=== PATIENT | female | born 1990 | race Caucasian/White ===

== ENCOUNTER 2018-07-05 14:57 | Outpatient (CLI) | payer OTHER ==
[~2018-07-05] VITALS: Ht 172.7 cm; Wt 68.2 kg
[~2018-07-05 14:57] MED LIST: IBUP-1222 PO
[2018-07-05] MEDS ORDERED: TERBUTALINE 1 MG/ML, 1ML SQ ONE (15:30)
[2018-07-05] MEDS ORDERED: TERBUTALINE 1 MG/ML, 1ML ONE (16:09)
== END 2018-07-05 18:05 | disposition home or self-care (01) ==
LOC: LDOP 14:57
PROVIDERS: ATTEND Obstetrics & Gynecology
DX: O26.93 Pregnancy related conditions, unspecified, third trimester (principal); Z3A.38 38 weeks gestation of pregnancy
CPT/HCPCS: 59025; 59412; 99211; J3105; G0463

== ENCOUNTER 2018-07-17 22:21 | Inpatient (IN) | payer OTHER ==
[~2018-07-17] VITALS: Ht 172.7 cm; Wt 64.5 kg
[2018-07-17] MEDS ORDERED: LACTATED RINGERS 1,000 ML IV SCH ×2 (22:57→23:00)
[2018-07-17] MEDS ORDERED: OXYTOCIN 30U/ 0.9% NaCL 500ML 500 ML IV SCH (22:57)
[2018-07-17] MEDS ORDERED: METOCLOPRAMIDE 5 MG/ML, 2ML IV ONE (23:00)
[2018-07-17] MEDS ORDERED: SODIUM CITRATE/CITRIC ACID 30 ML UDC PO ONE (23:00)
[2018-07-17] MEDS ORDERED: LACTATED RINGERS 1,000 ML IVBOLUS ONE (23:00)
[2018-07-17] MEDS ORDERED: METOCLOPRAMIDE 5 MG/ML, 2ML ONE (23:10)
[2018-07-17] MEDS ORDERED: NEWBORN KIT ONE (23:10)
[2018-07-17] MEDS ORDERED: OXYTOCIN 30U/ 0.9% NaCL 500ML 500 ML ONE (23:10)
[2018-07-17] MEDS ORDERED: SODIUM CITRATE/CITRIC ACID 30 ML UDC ONE (23:10)
[2018-07-17] MEDS ORDERED: ONDANSETRON 2MG/ML, 2ML ONE (23:22)
[2018-07-17] MEDS ORDERED: CEFAZOLIN 1,000 MG ONE (23:22)
[2018-07-17] MEDS ORDERED: OXYTOCIN 10 UNITS/ML, 1ML ONE (23:22)
[2018-07-17] MEDS ORDERED: HYDROmorphone 2 MG/ML, 1ML ONE (23:23)
[2018-07-17] MEDS ORDERED: FENTANYL PF 100 MCG/2ML ONE (23:23)
[2018-07-17] MEDS ORDERED: SODIUM CHLORIDE 0.9% PF 10ML ONE ×2 (23:25)
[2018-07-17 23:28] VITALS: BP 103/58
[2018-07-17 23:35] LABS: BASOPHILS # (AUTO) 0.09 x10^3/uL (0-0.1); BASOPHILS % (AUTO) 1 % (0-1); EOSINOPHILS # (AUTO) 0.11 x10^3/uL (0-0.4); EOSINOPHILS % (AUTO) 1 % (1-7); LYMPHOCYTES # (AUTO) 1.86 x10^3/uL (1-3.4); LYMPHOCYTES % (AUTO) 14 % (22-44); MD NO; MEAN CORPUSCULAR HEMOGLOBIN 28.5 pg (27.0-34.8); MEAN CORPUSCULAR HGB CONC 33.8 g/dL (32.4-35.8); MEAN CORPUSCULAR VOLUME 84.3 fL (80-100); MONOCYTES # (AUTO) 0.64 x10^3/uL (0.2-0.8); MONOCYTES % (AUTO) 5 % (2-9); NEUTROPHILS # (AUTO) 10.18 x10^3/uL (1.8-6.8); NEUTROPHILS % (AUTO) 79 % (42-75); PLATELET COUNT 191 x10^3/uL (130-400); RED BLOOD COUNT 3.95 x10^6/uL (3.82-5.3); RED CELL DISTRIBUTION WIDTH 13.6 % (9.6-15.2)
[2018-07-18] MEDS: LACTATED RINGERS 1,000 ML IV SCH ×6 (01:04→21:04)
[2018-07-18] MEDS ORDERED: KETOROLAC 30 MG/1 ML ONE (01:08)
[2018-07-18] MEDS: OXYTOCIN 30U/ 0.9% NaCL 500ML 500 ML IV SCH ×3 (01:18→21:04)
[2018-07-18] MEDS ORDERED: OXYcodone/APAP 5/325MG TABLET PO PRN ×2 (01:30)
[2018-07-18] MEDS ORDERED: METOCLOPRAMIDE 5 MG/ML, 2ML IV PRN (01:30)
[2018-07-18] MEDS ORDERED: GLYCERIN ADULT SUPP PR PRN (01:30)
[2018-07-18] MEDS ORDERED: METHYLERGONOVINE 0.2 MG/ML IM PRN (01:30)
[2018-07-18] MEDS ORDERED: ONDANSETRON 2MG/ML, 2ML IV PRN (01:30)
[2018-07-18] MEDS ORDERED: IBUPROFEN 600 MG TABLET PO PRN (01:30)
[2018-07-18] MEDS ORDERED: ACETAMINOPHEN 325 MG TABLET PO PRN (01:30)
[2018-07-18] MEDS ORDERED: CARBOPROST TROMETHAMINE 250 MCG/ML, 1ML IM PRN (01:30)
[2018-07-18] MEDS ORDERED: MISOPROSTOL 200 MCG TABLET PR PRN (01:30)
[2018-07-18] MEDS ORDERED: BISACODYL 10 MG SUPP PR PRN (01:30)
[2018-07-18] MEDS ORDERED: morphine SULFATE 10 MG/ML, 1ML IVPush PRN (01:30)
[2018-07-18] MEDS: KETOROLAC 30 MG/1 ML IV SCH ×4 (01:46→20:41)
[2018-07-18 02:20] VITALS: BP 102/66
[2018-07-18 06:15] VITALS: BP 105/69
[2018-07-18 08:00] VITALS: BP 97/59
[2018-07-18] MEDS: PRENATAL VIT/IRON/FA 1 EACH TABLET PO SCH (09:00)
[2018-07-18 11:18] LABS: BASOPHILS # (AUTO) 0.02 x10^3/uL (0-0.1); BASOPHILS % (AUTO) 0 % (0-1); EOSINOPHILS # (AUTO) 0.14 x10^3/uL (0-0.4); EOSINOPHILS % (AUTO) 1 % (1-7); LYMPHOCYTES % (AUTO) 15 % (22-44); MD NO; MEAN CORPUSCULAR HEMOGLOBIN 28.6 pg (27.0-34.8); MEAN CORPUSCULAR HGB CONC 33.7 g/dL (32.4-35.8); MEAN CORPUSCULAR VOLUME 84.7 fL (80-100); MEAN PLATELET VOLUME 9.4 fL (7.4-10.4); MONOCYTES # (AUTO) 0.44 x10^3/uL (0.2-0.8); MONOCYTES % (AUTO) 4 % (2-9); NEUTROPHILS # (AUTO) 9.41 x10^3/uL (1.8-6.8); NEUTROPHILS % (AUTO) 80 % (42-75); PLATELET COUNT 194 x10^3/uL (130-400); RED BLOOD COUNT 3.87 x10^6/uL (3.82-5.3); RED CELL DISTRIBUTION WIDTH 13.9 % (9.6-15.2)
[2018-07-18 12:00] VITALS: BP 95/60
[2018-07-18] MEDS: DOCUSATE 100 MG CAPSULE PO PRN (14:50)
[2018-07-18 16:45] VITALS: BP 98/65
[2018-07-18 20:20] VITALS: BP 98/66
[2018-07-19] MEDS: LACTATED RINGERS 1,000 ML IV SCH ×3 (01:04→09:04)
[2018-07-19] MEDS: DOCUSATE 100 MG CAPSULE PO PRN (02:49)
[2018-07-19] MEDS: KETOROLAC 30 MG/1 ML IV SCH ×3 (02:49→14:30)
[2018-07-19] MEDS: OXYTOCIN 30U/ 0.9% NaCL 500ML 500 ML IV SCH (07:04)
[2018-07-19 07:10] VITALS: BP 95/62
[2018-07-19] MEDS: PRENATAL VIT/IRON/FA 1 EACH TABLET PO SCH (09:16)
[2018-07-19] MEDS ORDERED: OXYC-302 PO (09:56)
== END 2018-07-19 15:54 | disposition home or self-care (01) | DRG 787 ==
LOC: LDOP 22:21 → LDIP 23:01 → 2NW 07-18 02:08
PROVIDERS: ADMIT Obstetrics & Gynecology; ATTEND Obstetrics & Gynecology
PROC: 10D00Z1 Extraction of Products of Conception, Low, Open Approach (ICD-10-PCS; principal; 2018-07-18)
DX: O32.1XX0 Maternal care for breech presentation, not applicable or unspecified (principal); O99.354 Diseases of the nervous system complicating childbirth; J45.909 Unspecified asthma, uncomplicated; O99.52 Diseases of the respiratory system complicating childbirth; G43.909 Migraine, unspecified, not intractable, without status migrainosus; Z3A.40 40 weeks gestation of pregnancy; Z37.0 Single live birth; Z90.49 Acquired absence of other specified parts of digestive tract; Z88.8 Allergy status to other drugs, medicaments and biological substances
CPT/HCPCS: 36415; 85025; 86900; G0378; J0690; J1170; J1885; J2405; J3010; J2590; J2765; J7120

== ENCOUNTER 2019-08-08 10:04 | Day surgery (SDC) | payer OTHER ==
[~2019-08-08] VITALS: Ht 175.3 cm; Wt 58.1 kg
[~2019-08-08 10:04] MED LIST changes: +OXYC-302 PO
[2019-08-08] MEDS ORDERED: LACTATED RINGERS 1,000 ML IV SCH (10:43)
[2019-08-08 10:50] VITALS: BP 98/64
[2019-08-08] MEDS ORDERED: PRENATAL (10:50)
[2019-08-08] MEDS ORDERED: MISOPROSTOL 200 MCG TABLET ONE (11:06)
[2019-08-08] MEDS ORDERED: METHYLERGONOVINE 0.2 MG/ML IM ONE (11:06)
[2019-08-08] MEDS ORDERED: SILVER NITRATE STICK TP ONE (11:06)
[2019-08-08] MEDS ORDERED: OXYTOCIN 10 UNITS/ML, 1ML ONE (11:06)
[2019-08-08] MEDS ORDERED: ACETAMINOPHEN 500 MG TABLET PO ONE (11:30)
[2019-08-08] MEDS ORDERED: SCOPOLAMINE PATCH, 1.5MG PATCH.TD72 TD ONE (11:30)
[2019-08-08] MEDS ORDERED: DIAZEPAM 5 MG TABLET PO ONE (11:30)
[2019-08-08 11:47] LABS: BASOPHILS # (AUTO) 0.02 x10^3/uL (0-0.1); BASOPHILS % (AUTO) 0 % (0-1); EOSINOPHILS # (AUTO) 0.06 x10^3/uL (0-0.4); EOSINOPHILS % (AUTO) 1 % (1-7); LYMPHOCYTES # (AUTO) 1.94 x10^3/uL (1-3.4); LYMPHOCYTES % (AUTO) 35 % (22-44); MD NO; MEAN CORPUSCULAR HEMOGLOBIN 29.8 pg (27.0-34.8); MEAN CORPUSCULAR HGB CONC 33.2 g/dL (32.4-35.8); MEAN CORPUSCULAR VOLUME 89.8 fL (80-100); MEAN PLATELET VOLUME 9.1 fL (7.4-10.4); MONOCYTES % (AUTO) 7 % (2-9); NEUTROPHILS # (AUTO) 3.16 x10^3/uL (1.8-6.8); NEUTROPHILS % (AUTO) 57 % (42-75); PLATELET COUNT 211 x10^3/uL (130-400); RED BLOOD COUNT 5.04 x10^6/uL (3.82-5.3); RED CELL DISTRIBUTION WIDTH 12.9 % (9.6-15.2)
[2019-08-08] MEDS ORDERED: FENTANYL PF 100 MCG/2ML ONE ×2 (11:47→13:18)
[2019-08-08] MEDS ORDERED: MIDAZOLAM 1 MG/ML, 2ML ONE (11:47)
[2019-08-08] MEDS ORDERED: CEFAZOLIN 1,000 MG ONE (11:50)
[2019-08-08] MEDS ORDERED: PROPOFOL 50 ML ONE (11:50)
[2019-08-08] MEDS ORDERED: DEXAMETHASONE 4 MG/ML, 1ML ONE (11:50)
[2019-08-08] MEDS ORDERED: ONDANSETRON 2MG/ML, 2ML ONE (11:50)
[2019-08-08] MEDS ORDERED: PROPOFOL 10 MG/ML, 20ML ONE (11:50)
[2019-08-08 11:55] LABS: ANION GAP 7 mmol/L (5-15); CALCIUM 9.3 mg/dL (8.5-10.1); CHLORIDE 106 mmol/L (98-107); CREATININE 0.82 mg/dL (0.55-1.02)
[2019-08-08] MEDS ORDERED: SODIUM CHLORIDE 0.9% 50 ML ONE (12:25)
[2019-08-08] MEDS ORDERED: VASOPRESSIN 20 UNIT/ML, 1ML ONE (12:25)
[2019-08-08] MEDS ORDERED: ONDANSETRON ODT 8 MG PO PRN (12:30)
[2019-08-08] MEDS ORDERED: ONDANSETRON 2MG/ML, 2ML IV PRN (12:30)
[2019-08-08] MEDS ORDERED: LORazepam 2 MG/ML, 1ML IVPush PRN (12:30)
[2019-08-08] MEDS ORDERED: OXYcodone 5 MG/5 ML ORAL.SOL UDC PO PRN (12:30)
[2019-08-08] MEDS ORDERED: PROMETHAZINE 25 MG SUPP PR PRN (12:30)
[2019-08-08] MEDS ORDERED: PROMETHAZINE 12.5 MG SUPP PR PRN (12:30)
[2019-08-08] MEDS ORDERED: OXYcodone 5 MG/5 ML ORAL.SOL UDC ONE (13:19)
[2019-08-08] MEDS: FENTANYL PF 100 MCG/2ML IV PRN ×2 (13:22→13:31)
[2019-08-08] MEDS ORDERED: HYDROmorphone 1 MG/ML, 1ML INJ ONE (13:37)
[2019-08-08] MEDS: HYDROmorphone 2 MG/ML, 1ML IVPush PRN ×2 (13:39→13:45)
== END 2019-08-08 17:30 | disposition home or self-care (01) ==
LOC: OUT 10:04
PROVIDERS: ATTEND Obstetrics & Gynecology Maternal & Fetal Medicine
DX: O02.1 Missed abortion (principal); J45.909 Unspecified asthma, uncomplicated; G43.909 Migraine, unspecified, not intractable, without status migrainosus; Z3A.11 11 weeks gestation of pregnancy; Z88.8 Allergy status to other drugs, medicaments and biological substances
CPT/HCPCS: 36415; 59820; 80048; 84702; 85025; 88305; J0690; J1100; J1170; J2250; J2405; J2704; J3010; J7120; J2210; J2590